=== PATIENT | male | born 1995 | race Caucasian/White ===

== ENCOUNTER 2020-03-13 16:46 | Emergency (ER) | payer SELFPAY ==
--- NOTE | 2020-03-13 17:31 | ER Document Report ---
ED Medical Screen (RME) - General Chief Complaint: Chest Pain Stated Complaint: CHEST PAIN Time Seen by Provider: 03/13/20 17:18 - HPI Notes: Patient is a 25-year-old male with no medical history who presents with substernal chest pain that began earlier today. Patient describes the pain as pressure-like that radiates to his left chest. He reports shortness of breath but denies abdominal pain, vomiting, palpitations and fever. Patient reports increased stress in his life as his dad was recently in the hospital. - Related Data Allergies/Adverse Reactions: beeswax Allergy (Verified 03/13/20 17:17) shellfish derived Allergy (Verified 03/13/20 17:17) Past Medical History - Social History Chew tobacco use (# tins/day): No Frequency of alcohol use: None Drug Abuse: Marijuana Physical Exam - Vital signs Vitals: Temp Pulse BP Pulse Ox 98.9 F 56 L 150/82 H 99 03/13/20 17:03 03/13/20 17:03 03/13/20 17:03 03/13/20 17:03 - Respiratory Respiratory status: No respiratory distress Breath sounds: Normal - Cardiovascular Rhythm: Regular Heart sounds: Normal auscultation Course - Re-evaluation Re-evalutation: I have greeted and performed a rapid initial assessment of this patient. A comprehensive ED assessment and evaluation of the patient, analysis of test results and completion of medical decision making process will be conducted by an additional ED providers. - Vital Signs Vital signs: Temp Pulse Resp BP Pulse Ox 98.9 F 56 L 150/82 H 99 03/13/20 17:03 03/13/20 17:03 03/13/20 17:03 03/13/20 17:03
[2020-03-13 17:51] LABS: ABSOLUTE BASOPHILS # (AUTO) 0.1 10^3/uL (0.0-0.2); ABSOLUTE EOSINOPHILS # (AUTO) 0.1 10^3/uL (0.0-0.6); ABSOLUTE LYMPHOCYTES (AUTO) 2.2 10^3/uL (0.5-4.7); ABSOLUTE MONOCYTES (AUTO) 0.5 10^3/uL (0.1-1.4); ABSOLUTE NEUT (AUTO) 4.9 10^3/uL (1.7-8.2); BASOPHILS % (AUTO) 0.9 % (0-2); EOSINOPHILS % (AUTO) 1.2 % (0-6); HEMATOCRIT 43.1 % (37.9-51.0); HEMOGLOBIN 15.5 g/dL (13.5-17.0); LYMPHOCYTES % (AUTO) 28.2 % (13-45); MEAN CORPUSCULAR HEMOGLOBIN 30.7 pg (27.0-33.4); MEAN CORPUSCULAR HGB CONC 35.9 g/dL (32.0-36.0); MEAN CORPUSCULAR VOLUME 85 fl (80-97); MONOCYTES % (AUTO) 7.1 % (3-13); PLATELET COUNT 180 10^3/uL (150-450); RED BLOOD COUNT 5.04 10^6/uL (4.35-5.55); RED CELL DISTRIBUTION WIDTH 12.9 % (11.5-14.0); SEGMENTED NEUTROPHILS % (AUTO) 62.6 % (42-78); TOTAL CELLS COUNTED % (AUTO) 100 %; WHITE BLOOD COUNT 7.8 10^3/uL (4.0-10.5)
[2020-03-13 18:08] LABS: ALBUMIN 4.6 g/dL (3.5-5.0); ALKALINE PHOSPHATASE 70 U/L (38-126); ANION GAP 8 (5-19); ASPARTATE AMINO TRANSFERASE 21 U/L (17-59); BILIRUBIN,DIRECT 0.1 mg/dL (0.0-0.4); BILIRUBIN,TOTAL 0.8 mg/dL (0.2-1.3); BLOOD UREA NITROGEN 12 mg/dL (7-20); CALCIUM 9.6 mg/dL (8.4-10.2); CARBON DIOXIDE 27 mmol/L (22-30); CHLORIDE 103 mmol/L (98-107); GLUCOSE 104 mg/dL (75-110); POTASSIUM 3.8 mmol/L (3.6-5.0); TOTAL PROTEIN 7.4 g/dL (6.3-8.2)
--- NOTE | 2020-03-13 18:10 | RADIOLOGY REPORT (SQ) ---
EXAM DESCRIPTION: CHEST SINGLE VIEW IMAGES COMPLETED DATE/TIME: 03/13/2020 5:58 pm REASON FOR STUDY: chest pain COMPARISON: None. EXAM PARAMETERS: NUMBER OF VIEWS: One view. TECHNIQUE: Single frontal radiographic view of the chest acquired. RADIATION DOSE: NA LIMITATIONS: None. FINDINGS: LUNGS AND PLEURA: No opacities, masses or pneumothorax. No pleural effusion. MEDIASTINUM AND HILAR STRUCTURES: No masses. Contour normal. HEART AND VASCULAR STRUCTURES: Heart normal in size. Normal vasculature. BONES: No acute findings. HARDWARE: None in the chest. OTHER: No other significant finding. IMPRESSION: NO ACUTE RADIOGRAPHIC FINDING IN THE CHEST. TECHNICAL DOCUMENTATION: JOB ID: [id number] 2010 [employer]- All Rights Reserved Reading location - IP/workstation name: [email or web address]
--- NOTE | 2020-03-13 20:13 | ER Document Report ---
ED General - General Chief Complaint: Chest Pain Stated Complaint: CHEST PAIN Time Seen by Provider: 03/13/20 17:18 - HPI Notes: Patient is a 25-year male who presents emergency department for evaluation of chest pain. He states that he has been having "a very stressful year." He states his dad has been in the hospital, he has had other stressors. He states that on Friday after going to a bonfire he felt like he could not get a deep breath. He spoke to his mother on the phone. She believes he was having some anxiety, "tried to talk me down." He states that shortly afterwards he developed a tightness in his chest. He states that after that he felt better, woke up in the morning and felt better, but about an hour later he started having this tightness in the center of his chest again. Then radiated into bilateral shoulders, up into his neck, down into his back, and he felt slightly short of breath, so he comes here for further evaluation. The pain is not affected by exertion, in fact he states that his pain resolves when he gets up and walks around. He denies any associated palpitations, nausea, diaphoresis, near syncope. - Related Data Allergies/Adverse Reactions: beeswax Allergy (Verified 03/13/20 17:17) shellfish derived Allergy (Verified 03/13/20 17:17) Past Medical History - General Information source: Patient - Social History Smoking Status: Former Smoker Chew tobacco use (# tins/day): No Frequency of alcohol use: None Drug Abuse: Marijuana Family History: Malignancy - Cervical cancer, Other - Gallstone pancreatitis GI Medical History: Reports: Other - Hospitalized with elevated liver enzymes in the past, no cause identified Review of Systems - Review of Systems Constitutional: No symptoms reported EENT: No symptoms reported Cardiovascular: See HPI Respiratory: See HPI Gastrointestinal: No symptoms reported Genitourinary: No symptoms reported Musculoskeletal: No symptoms reported Skin: No symptoms reported Neurological/Psychological: No symptoms reported Physical Exam - Vital signs Vitals: Temp Pulse BP Pulse Ox 98.9 F 56 L 150/82 H 99 03/13/20 17:03 03/13/20 17:03 03/13/20 17:03 03/13/20 17:03 - Notes Notes: Vital signs reviewed, please refer to chart. Head is normocephalic, atraumatic. Pupils equal round, reactive to light. Neck is supple without meningismus. Heart is regular rate and rhythm. Lungs are clear to auscultation bilaterally. Abdomen is soft, nontender, normoactive bowel sounds throughout. Extremities without cyanosis, clubbing. Posterior calves are nontender. Peripheral pulses are equal. Skin is warm and dry. Patient is awake, alert, neurological exam is nonfocal. Course - Re-evaluation Re-evalutation: 03/13/20 20:17 Patient presents emergency department for evaluation. The chest pain he describes sounds consistent with anxiety. The patient has little in the way of risk factors the exception of obesity and being a former smoker, but he is only 25 so does not have a significant tobacco history. His laboratory investigations showed an undetectable troponin. Patient was reassured that this was likely anxiety. I will send him home with a prescription for Vistaril. He is encouraged to follow-up with his primary care provider. He is told to cut down on caffeine, but not entirely eliminated. He is told that he should not use THC, whether through marijuana or supplements, to help him with anxiety. He had tried that and it actually worsened his symptoms. He voiced understanding. He is to return to the emergency department for worsening or new concerning symptoms of any sort. - Vital Signs Vital signs: Temp Pulse Resp BP Pulse Ox 98.9 F 56 L 150/82 H 99 03/13/20 17:03 03/13/20 17:03 03/13/20 17:03 03/13/20 17:03 - Laboratory Results Result Diagrams: 03/13/20 17:37 03/13/20 17:37 Critical Laboratory Results Reviewed: No Critical Results - Radiology Results Radiology Results Interpreted: 03/13/20 20:18 Chest X-Ray 03/13/20 17:27 IMPRESSION: NO ACUTE RADIOGRAPHIC FINDING IN THE CHEST. Critical Radiology Results Reviewed: No Critical Results - EKG Interpretation by Me Additional EKG results interpreted by me: 03/13/20 20:18 Sinus bradycardia with a rate of 53 bpm. PAC noted. Normal axis and intervals. No acute ST changes concerning for ischemia or infarction. Discharge - Discharge Clinical Impression: Anxiety Condition: Stable Disposition: HOME, SELF-CARE Instructions: Anxiety (OM) Additional Instructions: Please decrease caffeine intake. Do not illuminate it entirely, as this may cause a significant headache. Please do not use any sort of THC supplementation to help with anxiety. Try Vistaril as needed for anxiety. Follow-up with your primary care provider, you may benefit from a daily medication to prevent anxiety. If you develop worsening or new concerning symptoms of any sort, please return immediately to the emergency department for evaluation. Prescriptions: Hydroxyzine Pamoate [Vistaril 25 mg Capsule] 25 mg PO TIDP PRN #30 capsule PRN Reason: Anxiety
[2020-03-13 20:21] VITALS: BP 136/76
--- NOTE | 2020-03-15 09:22 | EKG REPORT ---
SEVERITY:- OTHERWISE NORMAL ECG - SINUS BRADYCARDIA ATRIAL PREMATURE COMPLEX : Confirmed by: Ryan Austin MD 15-Mar-2020 09:21:38
== END 2020-03-13 20:21 | disposition home or self-care (01) ==
LOC: ER 16:46
DX: F41.9 Anxiety disorder, unspecified (principal); R07.9 Chest pain, unspecified; R06.02 Shortness of breath
CPT/HCPCS: 36415; 71045; 80053; 84484; 85025; 93005; 93010; 99284

== ENCOUNTER 2020-03-17 16:25 | Emergency (ER) | payer SELFPAY ==
--- NOTE | 2020-03-17 17:10 | ER Document Report ---
ED Medical Screen (RME) - General Chief Complaint: Chest Pain Stated Complaint: CHEST PAIN Time Seen by Provider: 03/17/20 17:05 Mode of Arrival: Wheelchair Notes: Patient presents stating that he was seen here 5 days ago and diagnosed with anxiety. Patient does not feel as though his anxiety. Patient states that he was placed on hydroxyzine and feels that he was having cardiac problems due to this medications. Patient states yesterday started have palpitations, today he developed shortness of breath that is worse with exertion. Patient states that after taking the medication today around 1115 2 hours later he started to have some blurred vision and some chest discomfort that he attributes to this medication. Patient states he has been forming daily EKGs and was concerned about the tracing and presented to a family member who is a aviation medicine specialist who advised him to come here emergently. Patient also spoke with a previous therapist about his symptoms and they advised him that the medication he is on can cause heart problems. I have greeted and performed a rapid initial assessment of this patient. A comprehensive ED assessment and evaluation of the patient, analysis of test results and completion of the medical decision making process will be conducted by additional ED providers. - Related Data Allergies/Adverse Reactions: beeswax Allergy (Verified 03/13/20 17:17) shellfish derived Allergy (Verified 03/13/20 17:17) Physical Exam - Vital signs Vitals: Temp Pulse Resp BP Pulse Ox 98.1 F 93 20 133/71 H 100 03/17/20 16:31 03/17/20 16:31 03/17/20 16:03/17/20 16:31 03/17/20 16:31 - Respiratory Respiratory status: No respiratory distress Breath sounds: Normal - Cardiovascular Rhythm: Regular Heart sounds: S1 appreciated, S2 appreciated Course - Vital Signs Vital signs: Temp Pulse Resp BP Pulse Ox 98.1 F 93 20 133/71 H 100 03/17/20 16:31 03/17/20 16:31 03/17/20 16:31 03/17/20 16:31 03/17/20 16:31
--- NOTE | 2020-03-17 17:37 | RADIOLOGY REPORT (SQ) ---
EXAM DESCRIPTION: CHEST 2 VIEWS IMAGES COMPLETED DATE/TIME: 03/17/2020 2:22 pm REASON FOR STUDY: maximo garcia COMPARISON: 03/13/2020 EXAM PARAMETERS: NUMBER OF VIEWS: two views TECHNIQUE: Digital Frontal and Lateral radiographic views of the chest acquired. RADIATION DOSE: NA LIMITATIONS: none FINDINGS: LUNGS AND PLEURA: No opacities, masses or pneumothorax. No pleural effusion. MEDIASTINUM AND HILAR STRUCTURES: No masses or contour abnormalities. HEART AND VASCULAR STRUCTURES: Heart normal size. No evidence for failure. BONES: No acute findings. HARDWARE: None in the chest. OTHER: No other significant finding. IMPRESSION: NO ACUTE RADIOGRAPHIC FINDING IN THE CHEST. TECHNICAL DOCUMENTATION: JOB ID: [id number] 2010 [employer]- All Rights Reserved Reading location - IP/workstation name: [email or web address]
[2020-03-17 17:39] LABS: ABSOLUTE BASOPHILS # (AUTO) 0.1 10^3/uL (0.0-0.2); ABSOLUTE EOSINOPHILS # (AUTO) 0.1 10^3/uL (0.0-0.6); ABSOLUTE LYMPHOCYTES (AUTO) 1.6 10^3/uL (0.5-4.7); ABSOLUTE MONOCYTES (AUTO) 0.4 10^3/uL (0.1-1.4); ABSOLUTE NEUT (AUTO) 4.8 10^3/uL (1.7-8.2); BASOPHILS % (AUTO) 0.7 % (0-2); EOSINOPHILS % (AUTO) 1.3 % (0-6); HEMATOCRIT 46.2 % (37.9-51.0); HEMOGLOBIN 16.5 g/dL (13.5-17.0); LYMPHOCYTES % (AUTO) 22.7 % (13-45); MEAN CORPUSCULAR HEMOGLOBIN 30.7 pg (27.0-33.4); MEAN CORPUSCULAR HGB CONC 35.7 g/dL (32.0-36.0); MEAN CORPUSCULAR VOLUME 86 fl (80-97); MONOCYTES % (AUTO) 5.7 % (3-13); PLATELET COUNT 199 10^3/uL (150-450); RED BLOOD COUNT 5.37 10^6/uL (4.35-5.55); RED CELL DISTRIBUTION WIDTH 13.3 % (11.5-14.0); SEGMENTED NEUTROPHILS % (AUTO) 69.6 % (42-78); TOTAL CELLS COUNTED % (AUTO) 100 %; WHITE BLOOD COUNT 6.9 10^3/uL (4.0-10.5)
[2020-03-17 17:42] LABS: APPEARANCE,URINE CLEAR; BILIRUBIN,URINE NEGATIVE (NEGATIVE); COLOR,URINE YELLOW; GLUCOSE, URINE NEGATIVE (NEGATIVE); KETONES,URINE TRACE mg/dL (NEGATIVE); LEUKOCYTE ESTERASE,URINE NEGATIVE (NEGATIVE); NITRITE,URINE NEGATIVE (NEGATIVE); PROTEIN,URINE NEGATIVE (NEGATIVE); URINE SPECIFIC GRAVITY 1.009; UROBILINOGEN,URINE NEGATIVE mg/dL (<2.0)
[2020-03-17 17:56] LABS: ALBUMIN 5.1 g/dL (3.5-5.0); ALKALINE PHOSPHATASE 76 U/L (38-126); ANION GAP 11 (5-19); ASPARTATE AMINO TRANSFERASE 20 U/L (17-59); BILIRUBIN,DIRECT 0.2 mg/dL (0.0-0.4); BILIRUBIN,TOTAL 0.9 mg/dL (0.2-1.3); BLOOD UREA NITROGEN 13 mg/dL (7-20); CALCIUM 9.9 mg/dL (8.4-10.2); CARBON DIOXIDE 25 mmol/L (22-30); CHLORIDE 101 mmol/L (98-107); GLUCOSE 107 mg/dL (75-110); POTASSIUM 4.1 mmol/L (3.6-5.0); TOTAL PROTEIN 8.1 g/dL (6.3-8.2)
[2020-03-17 18:06] LABS: URINE AMPHETAMINES SCREEN NEGATIVE; URINE BARBITURATES SCREEN NEGATIVE; URINE BENZODIAZEPINES SCREEN NEGATIVE; URINE COCAINE SCREEN NEGATIVE; URINE METHADONE SCREEN NEGATIVE; URINE PHENCYCLIDINE SCREEN NEGATIVE
[2020-03-17 18:07] LABS: URINE MARIJUANA (THC) SCREEN UNCONFIRMED POSITIVE
--- NOTE | 2020-03-17 19:05 | ER Document Report ---
ED Cardiac - General Chief Complaint: Chest Pain Stated Complaint: CHEST PAIN Time Seen by Provider: 03/17/20 17:05 Mode of Arrival: Wheelchair Notes: Patient is a 25-year-old male presents emergency department with a chief complaint of palpitations. Patient was started on hydroxyzine 5 days ago. States that he does not feel that the chest pain is getting worse, but states that he did not start having palpitations until he started the hydroxyzine. States that he has been at a phone that can check your EKG and was told by a friend to get checked out. - Related Data Allergies/Adverse Reactions: beeswax Allergy (Verified 03/13/20 17:17) shellfish derived Allergy (Verified 03/13/20 17:17) Past Medical History - Social History Smoking Status: Unknown if Ever Smoked Chew tobacco use (# tins/day): No Frequency of alcohol use: None Drug Abuse: None Family History: Malignancy - Cervical cancer, Other - Gallstone pancreatitis Patient has homicidal ideation: No Review of Systems - Review of Systems Notes: REVIEW OF SYSTEMS: CONSTITUTIONAL : Denies recent illness. Denies recent unintentional weight loss. Denies fever, chills, or sweats. EENT: Denies eye, ear, throat, or mouth pain, discharge, or symptoms. Denies nasal or sinus congestion. CARDIOVASCULAR: See HPI. RESPIRATORY: Denies shortness of breath, cough, congestion, difficulty breathing, or wheezing. GASTROINTESTINAL: Denies nausea, vomiting, and diarrhea. Denies abdominal pain. Denies constipation. GENITOURINARY: Denies difficulty urinating, burning, blood in urine, urgency or frequency. MUSCULOSKELETAL: Denies neck and back pain. Denies joint pain or swelling. SKIN: Denies rash, itchiness, or lesions HEMATOLOGIC : Denies easy bruising or bleeding. LYMPHATIC: Denies swollen, painful, enlarged glands. NEUROLOGICAL: Denies no numbness or tingling denies weakness. Denies headache. Denies altered mental status. Denies alteration in speech. PSYCHIATRIC: Denies stress, anxiety, alteration in sleep patterns, or depression. All other systems reviewed and negative. Physical Exam - Vital signs Vitals: Temp Pulse Resp BP Pulse Ox 98.1 F 93 20 133/71 H 100 03/17/20 16:31 03/17/20 16:31 03/17/20 16:31 03/17/20 16:31 03/17/20 16:31 - Notes Notes: PHYSICAL EXAMINATION: GENERAL: Appears well, healthy, well-nourished, no acute distress. HEAD: Normocephalic, atraumatic. EYES: PERRL, conjunctiva normal, all extraocular movements intact, sclera nonicteric ENT: Moist mucous membranes. NECK: Supple, no noticeable swelling, redness, rash. Normal range of motion. LUNGS: Equal breath sounds bilaterally and clear to auscultation. No wheezes rales or rhonchi. CARDIOVASCULAR: S1-S2, regular rate, regular rhythm. Radial pulses 2+, normal. ABDOMEN: Normoactive bowel sounds. Soft, nontender, no guarding, no rebound tenderness, and no masses palpated. EXTREMITIES: Normal strength and range of motion, no pitting or edema. No cyanosis. NEUROLOGICAL: Moves all extremities upon command. Strength 5/5 in all extremities. PSYCH: Normal mood, normal affect. SKIN: Warm, dry. No rash, lesions, ulcerations noted. Normal skin turgor. Course - Re-evaluation Re-evalutation: 03/17/20 19:05 Hematology is unremarkable. Chemistries show that the patient's albumin is slightly high. He also has trace ketones in his urine. Told him that he is slightly dehydrated. 03/17/20 19:50 D-dimer is negative. TSH is normal. Patient agrees to follow-up with cardiology for 24-hour Holter monitor. Chest x-ray is normal. Have a low suspicion for pulmonary emboli, AR, or any life-threatening etiology at this time. Advised patient to stop taking the Vistaril. He is in agreement with this plan. Educated to continue Pepcid. Follow-up precautions were given. Verbal discharge instructions were given to the patient. They verbalized understanding. They are stable for discharge. - Vital Signs Vital signs: Temp Pulse Resp BP Pulse Ox 98.7 F 93 16 119/78 98 03/17/20 19:01 03/17/20 16:31 03/17/20 19:01 03/17/20 19:01 03/17/20 19:01 - Laboratory Results Result Diagrams: 03/17/20 17:10 03/17/20 17:10 Laboratory Results Interpreted: 01/29/21 01/29/21 17:10 17:10 Sodium 136.8 L Albumin 5.1 H Urine Ketones TRACE H Critical Laboratory Results Reviewed: No Critical Results - Radiology Results Critical Radiology Results Reviewed: No Critical Results - EKG Interpretation by Me Additional EKG results interpreted by me: 03/17/20 19:52 Sinus arrhythmia with a rate of 58-97. Rate of 80. WV 152; QRS 84; QT 428; QTc 494. No acute change from previous EKG done on March 13, 2020. Discharge - Discharge Clinical Impression: Palpitations Chest pain Qualifiers: Chest pain type: unspecified Qualified Code(s): R07.9 - Chest pain, unspecified Condition: Stable Disposition: HOME, SELF-CARE Additional Instructions: You were seen today for chest pain. The exact cause of your pain is unclear. However, based on your cardiac enzyme testing, chest x-ray, and EKG it does not appear that it is from an immediately life-threatening cause at this time. Although your testing here is normal is critical that you follow-up with your primary care physician for continued evaluation of this chest pain and possible stress testing. I recommended you see your physician within the next 24-48 hours to be evaluated for consideration of a stress test. Please return to emergency department immediately if you have worsening of your chest pain, shortness of breath, vomiting, become unable to exert yourself due to pain or di fficulty breathing, you pass out, or have any pain that radiates into your arms, jaw, or back. Please also return if you have any additional symptoms that are concerning to you. Follow-up with the pipe line inspector below. See if you can get a 24-hour Holter monitor. Continue Pepcid.
--- NOTE | 2020-03-17 19:36 | EKG REPORT ---
SEVERITY:- ABNORMAL ECG - SINUS ARRHYTHMIA, RATE 58-97 BORDERLINE T WAVE ABNORMALITIES PROLONGED QT INTERVAL : Confirmed by: Ryan Austin MD 17-Mar-2020 19:35:43
[2020-03-17 20:09] VITALS: BP 136/87
== END 2020-03-17 20:09 | disposition home or self-care (01) ==
LOC: ER 16:25
DX: R00.2 Palpitations (principal); R07.9 Chest pain, unspecified; F41.9 Anxiety disorder, unspecified; R06.02 Shortness of breath; R06.00 Dyspnea, unspecified
CPT/HCPCS: 36415; 71046; 80053; 80307; 81001; 83735; 84443; 84484; 85025; 85379; 93005; 93010; 99285